=== PATIENT | male | born 1960 | race African-American/Black ===

== ENCOUNTER → 2019-09-02 | Outpatient (CLI) | payer BC ==
[2015-07-17 10:47] VITALS: BP 177/80
[~2019-09-02] MED LIST: AMLO10TA8 PO; ATEN100T PO; CIPR500S3 PO; CIPR500T94 PO; INSU100C4 SQ; INSU300I SQ; LEUP30SY IM; LISI-130 PO; METF850T8 PO; PRAV40TA2 PO; TAMS0.4C97 PO
--- NOTE | 2019-09-02 13:45 | RAD ---
CT Abdomen and Pelvis without contrast History: Microhematuria, history of prostate cancer Technique: Noncontrast CT imaging was performed of the abdomen and pelvis. Multiplanar images are reviewed. Exposure: One or more of the following individualized dose reduction techniques were utilized for this examination: 1. Automated exposure control 2. Adjustment of the mA and/or kV according to patient size 3. Use of iterative reconstruction technique. Comparison: 05/08/2015 Findings: No urolithiasis or hydronephrosis is identified. There is again focus of hypodensity posteriorly of the mid to inferior left kidney estimated about 2.2 cm transverse which is larger, density measurements suggestive of cyst 1 Hounsfield units. There is also again hypodense lesion of the superior, lateral right kidney estimated about 2.1 cm transverse also, density measurements suggestive of a cyst at 4 Hounsfield units. Accurate evaluation of the renal parenchyma is limited without intravenous contrast. There is circumferential prominence of the poorly distended urinary bladder. 0.3 cm left lower lobe nodule is stable. Accurate evaluation of abdominal visceral organs is limited without intravenous contrast. There is no obvious abnormality of the spleen, liver, or pancreas. Gallbladder is present without obvious intraluminal abnormality by CT. There is no adrenal nodularity. Accurate evaluation of bowel is limited without oral contrast. There is no significant free air, free fluid, bowel dilatation. Appendix caliber is again somewhat prominent although no adjacent inflammatory change and there is some internal gas present. Stomach is distended. There is colonic diverticulosis. There is scattered plaque of the abdominal aorta and branches. There is again some fat in the left inguinal canal, no internal bowel. There are markers of the prostate gland. Impression: 1. There is no urolithiasis or hydronephrosis. There is nonspecific prominence of the poorly distended urinary bladder which could be due to incomplete distention, sequela of cystitis not excluded in the appropriate clinical setting. Bladder wall mass is not accurately excluded by this exam. There are bilateral renal cysts. Electronically signed by: Liam Pérez MD (09/02/2019 1:42 PM) [id number]
== END ==
LOC: CT 11:09
PROVIDERS: ATTEND Internal Medicine Nephrology
DX: N28.1 Cyst of kidney, acquired (principal); R80.9 Proteinuria, unspecified; Z85.46 Personal history of malignant neoplasm of prostate
CPT/HCPCS: 74176

== ENCOUNTER → 2020-09-15 | Outpatient (CLI) | payer BC ==
[2015-07-17 10:47] VITALS: BP 177/80
[~2020-09-15] MED LIST changes: +AMLO-187 PO; -AMLO10TA8 PO
[2020-09-15 13:45] LABS: BASO % 0 % (0-3); EOS # 0.3 x10^3/uL (0.0-0.7); EOS % 4 % (0-3); HEMATOCRIT 27.8 % (39.0-53.0); HEMOGLOBIN 8.9 g/dL (13.0-17.5); LYMPH % 13 % (24-48); MEAN CORPUSCULAR HEMOGLOBIN 27 pg (25-35); MEAN CORPUSCULAR HGB CONC 32 g/dL (31-37); MEAN CORPUSCULAR VOLUME 85 fL (79-100); MONO # 0.7 x10^3/uL (0.0-1.1); MONO % 8 % (0-9); NEUT # 6.2 x10^3/uL (1.8-7.7); NEUT % 76 % (31-73); PLATELET COUNT 330 x10^3/uL (140-400); RED BLOOD COUNT 3.27 x10^6/uL (4.30-5.70); RED CELL DISTRIBUTION WIDTH 13.8 % (11.5-14.5); WHITE BLOOD COUNT 8.2 x10^3/uL (4.0-11.0)
[2020-09-15 14:03] LABS: CALCIUM 8.7 mg/dL (8.5-10.1); CREATININE 3.1 mg/dL (0.7-1.3); GFR 24.8; POTASSIUM 4.1 mmol/L (3.5-5.1)
[2020-09-15 14:38] LABS: ALBUMIN 3.1 g/dL (3.4-5.0); ALBUMIN/GLOBULIN RATIO 0.7 (1.0-1.7); TOTAL BILIRUBIN 0.4 mg/dL (0.2-1.0); TOTAL PROTEIN 7.3 g/dL (6.4-8.2)
[2020-09-16 17:12] LABS: KAPPA FREE 132.7 mg/L (3.3-19.4); LAMBDA FREE 101.8 mg/L (5.7-26.3)
[2020-09-18 10:13] LABS: PSA FREE 0.64 ng/mL; PSA TOTAL 3.2 ng/mL (0.0-4.0)
[2020-09-18 17:25] LABS: ALPHA 1 0.3 g/dL (0.0-0.4); BETA 1.1 g/dL (0.7-1.3); GAMMA 1.4 g/dL (0.4-1.8); PROTEIN TOTAL 6.9 g/dL (6.0-8.5); SPEP AG RATIO 0.8 (0.7-1.7)
[2020-09-20 00:09] LABS: METHYLMALONIC ACID 102 nmol/L (0-378)
== END ==
LOC: ONCLAB 12:52
PROVIDERS: ATTEND Internal Medicine Hematology & Oncology
DX: D50.0 Iron deficiency anemia secondary to blood loss (chronic) (principal); D63.8 Anemia in other chronic diseases classified elsewhere; Z85.46 Personal history of malignant neoplasm of prostate
CPT/HCPCS: 36415; 80053; 82525; 82607; 82668; 82728; 82746; 83520; 83540; 83550; 83921; 84153; 84154; 84165; 85025; 85045